=== PATIENT | female | born 1985 | race Caucasian/White ===

== ENCOUNTER 2017-01-26 20:26 | Emergency (ER) | payer OTHER ==
[2017-01-26 22:33] LABS: BASO # 0.1 10_X3_uL (0.0-0.1); BASO % 0.2 % (0.1-1.2); EOS # 0.8 10_X3_uL (0.0-0.4); EOS % 3.6 % (0.7-5.8); GRAN # 13.8 10_X3_uL (1.6-6.1); GRAN % 64.7 % (34.0-71.1); HEMOGLOBIN 15.6 g/dL (11.2-15.7); LYMPH # 4.9 10_X3_uL (1.2-3.7); LYMPH % 22.9 % (19.3-51.7); MEAN CORPUSCULAR HEMOGLOBIN 28.5 pg (27.0-33.0); MEAN CORPUSCULAR HGB CONC 33.2 g/dL (32.0-36.0); MEAN CORPUSCULAR VOLUME 85.9 fL (79-95); MEAN PLATELET VOLUME 9.8 fl (7.5-11.5); MONO # 1.8 10_X3_uL (0.2-0.9); MONO % 8.6 % (4.7-12.5); PLATELET COUNT 458 x10_3/uL (182-369); RED BLOOD COUNT 5.47 x10_6/uL (3.9-5.2); RED CELL DISTRIBUTION WIDTH 15.2 % (11.7-14.4)
[2017-01-26 22:37] LABS: WHITE BLOOD COUNT 21.4 x10_3/uL (4.0-10.0)
[2017-01-26 22:50] LABS: ALBUMIN 4.1 gm/dL (3.4-5.0); ALKALINE PHOSPHATASE 112 U/L (50-136); ALT/SGPT 26 U/L (3.5-33.9); AST/SGOT 21 U/L (7.04-26.96); BILIRUBIN,TOTAL 0.21 mg/dL (0.0-1.0); BLOOD UREA NITROGEN 10 mg/dL (7-18); CALCIUM 9.4 mg/dL (8.7-10.7); CARBON DIOXIDE 24 mmol/L (21-32); CREATININE 0.7 mg/dL (0.6-1.3); GLUCOSE,RANDOM 159 mg/dL (70-99); POTASSIUM 4.1 mmol/L (3.5-5.1); SODIUM 141 mmol/L (136-145); TOTAL PROTEIN 8.5 gm/dL (6.4-8.2)
== END 2017-01-26 23:41 | disposition home or self-care (01) ==
LOC: ER 20:26
PROVIDERS: Internal Medicine
DX: J20.9 Acute bronchitis, unspecified (principal); Z98.890 Other specified postprocedural states; Z87.891 Personal history of nicotine dependence
CPT/HCPCS: 36415; 71020; 80053; 83605; 85025; 87040; 87070; 87400; 87880; 99283

== ENCOUNTER 2017-04-23 12:26 | Emergency (ER) | payer OTHER | END 2017-04-23 13:14 | disposition home or self-care (01) | LOC: ER 12:26 | DX: M77.9 Enthesopathy, unspecified (principal); M79.641 Pain in right hand | CPT/HCPCS: 73130; 99070; 99283 ==